=== PATIENT | male | born 1985 | race Caucasian/White ===

== ENCOUNTER 2019-05-29 18:17 | Emergency (ER) | payer BC ==
[~2019-05-29] VITALS: Ht 188 cm; Wt 104.3 kg
[2019-05-29] MEDS ORDERED: KETO10 PO (19:35)
[2019-05-29] MEDS ORDERED: Neurontin 100100 MG PO (19:35)
== END 2019-05-29 19:45 | disposition home or self-care (01) ==
LOC: ER 18:17
DX: M51.16 Intervertebral disc disorders with radiculopathy, lumbar region (principal); G62.9 Polyneuropathy, unspecified; Z79.899 Other long term (current) drug therapy
CPT/HCPCS: 99283